=== PATIENT | female | born 1990 | race Caucasian/White ===

== ENCOUNTER 2025-03-05 01:17 | Emergency (ER) | payer SELFPAY ==
[~2025-03-05] VITALS: Ht 170.2 cm; Wt 93.0 kg
[2025-03-05] MEDS ORDERED: ACETAMINOPHEN 500 MG TABLET ONE (01:50)
[2025-03-05] MEDS: ACETAMINOPHEN 500 MG TABLET PO ONE (02:03)
[2025-03-05 02:06] VITALS: BP 140/68; O2SAT 99
== END 2025-03-05 02:00 ==
LOC: ER 01:22
DX: S01.81XA Laceration without foreign body of other part of head, initial encounter (principal); S09.8XXA Other specified injuries of head, initial encounter; F17.210 Nicotine dependence, cigarettes, uncomplicated; J45.909 Unspecified asthma, uncomplicated; Z88.1 Allergy status to other antibiotic agents; Z88.7 Allergy status to serum and vaccine; Z90.49 Acquired absence of other specified parts of digestive tract; W01.0XXA Fall on same level from slipping, tripping and stumbling without subsequent striking against object, initial encounter; Y93.89 Activity, other specified; Y92.89 Other specified places as the place of occurrence of the external cause; Y99.8 Other external cause status
CPT/HCPCS: A4606; A4663; A9150